=== PATIENT | male | born 1960 | race Caucasian/White ===

== ENCOUNTER 2017-04-18 05:42 | Day surgery (SDC) | payer BC ==
[~2017-04-18] VITALS: Ht 180.3 cm; Wt 93.0 kg
--- NOTE | ~2017-04-18 | EGD ---
EGD REPORT [facility] [address] [place] [id number] NAME: WENDI HENRY : 58 STATUS : REG [facility] [place] PAT#: [id number] AGE: 56 ADM/REG DATE : 04/18/17 MR#: [id number] REPORT SERV DATE: 04/18/17 DICTATED BY: HAIDER ROMERO DATE: 04/18/17 REPORT STATUS : Draft TRANSCRIBED BY: [facility] DATE: 04/18/17 [facility] Patient Name: Wendi Henry Date of : 1960 Attending MD: HAIDER ROMERO MD Procedure Date No Time: 04/18/2017 Procedure: Colonoscopy Indications: Screening for colorectal malignant neoplasm; average risk; index exam. Patient Profile: Informed consent was obtained from the patient by me prior to the procedure. Risks, benefits, and alternatives were reviewed including the risk of bleeding, perforation, infection, reaction to medicine, missed lesion, and cardiopulmonary complications. Referring MD: Brett Vang Medicines: Monitored Anesthesia Care Complications: No immediate complications. Procedure: After I obtained informed consent, the scope was passed under direct vision. Throughout the procedure, the patient's blood pressure, pulse, and oxygen saturations were monitored continuously. The PCF [id number] was introduced through the anus and advanced to the cecum, identified by appendiceal orifice and ileocecal valve. The colonoscope was slowly withdrawn with careful examination all mucosal surfaces including specific attention around flexures and tip deflection behind folds; retroflexion performed in rectum. The colonoscopy was performed without difficulty. The patient tolerated the procedure well. The quality of the bowel preparation was adequate. The ileocecal valve, appendiceal orifice and rectum were photographed. Findings: A patchy area of mildly erythematous mucosa was found in the sigmoid colon. Biopsies were taken with a cold forceps for histology. Multiple medium-mouthed diverticula were found in the sigmoid colon and in the descending colon. Internal hemorrhoids were found during retroflexion and were mild. Impression: - Erythematous mucosa in the sigmoid colon. Biopsied. - Diverticulosis in the sigmoid colon and in the descending colon. - Internal hemorrhoids. Recommendation: - Patient has a contact number available for EGD REPORT [address] [address] NAME: WENDI HENRY : [birth year] STATUS : REG [facility] [place] PAT#: [id number] AGE: 56 ADM/REG DATE : 04/18/17 MR#: [id number] REPORT SERV DATE: 04/18/17 DICTATED BY: HAIDER ROMERO DATE: 04/18/17 REPORT STATUS : Draft TRANSCRIBED BY: [facility] DATE: 04/18/17 emergencies. The signs and symptoms of potential delayed complications were discussed with the patient. Return to normal activities tomorrow. Written discharge instructions were provided to the patient. - Regular diet. - Continue present medications. - Await pathology results. - Repeat colonoscopy for surveillance based on pathology results. Procedure Code(s): --- Professional --- 36351, Colonoscopy, flexible, proximal to splenic flexure; with biopsy, single or multiple Diagnosis Code(s): --- Professional --- K63.89, Other specified diseases of intestine K64.8, Other hemorrhoids K57.30, Diverticulosis of large intestine without perforation or abscess without bleeding Z12.11, Encounter for screening for malignant neoplasm of colon CPT copyright 2013 [employer]. All rights reserved. The codes documented in this report are preliminary and upon hospice office coordinator review may be revised to meet current compliance requirements. HAIDER ROMERO MD 04/18/2017 7:27 AM This report has been signed electronically. Number of Addenda: 0 Note Initiated On: 04/18/2017 7:04 AM Scope Withdrawal Time 0 hours 9 minutes 19 seconds
[~2017-04-18 05:42] MED LIST: AVALIDE1 TAB PO; FISH-EPA1000 MG PO; MULTI-VIT HP PO; PRILOSEC OTC20 MG PO; SPIRO25 PO
== END 2017-04-18 23:59 | disposition home or self-care (01) ==
LOC: DMU 05:42
PROVIDERS: Internal Medicine Gastroenterology
PROC: 0DBN8ZX Excision of Sigmoid Colon, Via Natural or Artificial Opening Endoscopic, Diagnostic (ICD-10-PCS; principal; 2017-04-18 07:00)
DX: Z12.11 Encounter for screening for malignant neoplasm of colon (principal); K57.30 Diverticulosis of large intestine without perforation or abscess without bleeding; K64.8 Other hemorrhoids; K21.9 Gastro-esophageal reflux disease without esophagitis; Z90.49 Acquired absence of other specified parts of digestive tract; Z79.899 Other long term (current) drug therapy; Z98.890 Other specified postprocedural states
CPT/HCPCS: 88305